=== PATIENT | female | born 1980 | race Caucasian/White ===

== ENCOUNTER 2017-03-26 09:27 | Emergency (ER) | payer SELFPAY ==
[~2017-03-26] VITALS: Ht 160 cm; Wt 62.6 kg
[2017-03-26] MEDS ORDERED: IV NORMAL SALINE 1000ML BAG 1,000 ML IV ONE (10:15)
[2017-03-26] MEDS ORDERED: ONDANSETRON PF 4 MG/2 ML VIAL. IV ONE (10:15)
[2017-03-26] MEDS ORDERED: MORPHINE SULFATE 10 MG/ML VIAL. IV ONE (10:15)
[2017-03-26 10:40] LABS: BILIRUBIN,URINE NEGATIVE (NEG); GLUCOSE,URINE NEGATIVE (NEG); NITRITE,URINE NEGATIVE (NEG); PROTEIN,URINE NEGATIVE (NEG-TRACE); UROBILINOGEN,URINE 0.2 mg/dL (0.2 mg/dL)
[2017-03-26 10:41] LABS: BASO # 0.1 x10^3/uL (0.0-0.2); BASO % 1 % (0-3); EOS % 3 % (0-3); HEMATOCRIT 42.2 % (36.0-47.0); HEMOGLOBIN 14.2 g/dL (12.0-15.5); LYMPH % 36 % (24-48); MEAN CORPUSCULAR HEMOGLOBIN 33 pg (25-35); MEAN CORPUSCULAR HGB CONC 34 g/dL (31-37); MEAN CORPUSCULAR VOLUME 97 fL (79-100); MONO % 6 % (0-9); NEUT % 53 % (31-73); PLATELET COUNT 156 x10^3/uL (140-400); RED BLOOD COUNT 4.34 x10^6/uL (3.50-5.40); RED CELL DISTRIBUTION WIDTH 12.9 % (11.5-14.5); WHITE BLOOD COUNT 5.5 x10^3/uL (4.0-11.0)
[2017-03-26] MEDS ORDERED: IOHEXOL 300 MG/ML 75 ML VIAL IV ONE (10:45)
[2017-03-26 10:47] LABS: ALBUMIN 3.4 g/dL (3.4-5.0); ALBUMIN/GLOBULIN RATIO 0.9 (1.0-1.7); CREATININE 0.8 mg/dL (0.6-1.0); GFR 80.7; POTASSIUM 4.6 mmol/L (3.5-5.1); TOTAL BILIRUBIN 0.2 mg/dL (0.2-1.0)
[2017-03-26 10:52] LABS: BARBITURATES NEG (NEG); BENZODIAZEPINES POS (NEG); CANNABINOIDS NEG (NEG); COCAINE NEG (NEG); METHADONE NEG (NEG); OPIATES NEG (NEG); PHENCYCLIDINE NEG (NEG)
[2017-03-26] MEDS ORDERED: CONTRAST GIVEN MC PRN (11:00)
[2017-03-26 11:15] LABS: BACTERIA,URINE FEW /HPF (0-FEW); RBC,URINE 0 /HPF (0-2); SQUAMOUS EPITHELIAL CELL,UR MOD /LPF
--- NOTE | 2017-03-26 11:47 | RAD ---
Exam performed: CT abdomen pelvis with contrast. History: Right lower quadrant abdominal pain. Date of service: 03/26/17. Comparison: None available Technique: Contiguous helical acquisitions are obtained through the abdomen and pelvis during intravenous administration of 75 cc of Omnipaque 300. Sagittal and coronal reformatted images are obtained and reviewed. Findings: The lung bases are essentially clear. The visualized heart is normal. The liver, gallbladder, spleen and pancreas are normal. Both adrenal glands and bilateral kidneys are normal in size with symmetric excretion of contrast via both kidneys. There is no hydronephrosis or nephrolithiasis. Aorta is normal in caliber without aneurysm. No retroperitoneal or mesenteric lymphadenopathy seen. Small and large bowel loops are nondilated and unremarkable. The visualized portion of the appendix is normal. No inflammatory changes are seen in the right lower quadrant. Urinary bladder is normal. There is a probable right ovarian cyst. The uterus is surgically absent. No free or focal fluid collections or pelvic lymphadenopathy seen. Interrogation of bone windows demonstrates no bony abnormality. Impression: 1. No acute intra-abdominal or pelvic process seen. 2. Appendix is normal. 3. Probable right ovarian cyst versus fluid-filled small bowel loop indicated.. Evaluation with pelvic ultrasound may be performed if indicated. PQRS Compliance Statement: One or more of the following individualized dose reduction techniques were utilized for this examination: 1. Automated exposure control 2. Adjustment of the mA and/or kV according to patient size 3. Use of iterative reconstruction technique
[2017-03-26 12:30] VITALS: BP 102/64
[2017-03-26] MEDS ORDERED: HYDROmorphone 2 MG/ML VIAL IV ONE ×2 (12:30→12:45)
[2017-03-26] MEDS ORDERED: DIPH1TAB PO (12:39)
[2017-03-26] MEDS ORDERED: ONDA4TAB10 SL (12:39)
[2017-03-26] MEDS ORDERED: OXYC5CAP3 PO (12:39)
--- NOTE | 2017-03-26 12:39 | PHYS DOC ---
Past Medical History Past Medical History: Seizure, Other Additional Past Medical Histor: epilepsy, psoriasis Past Surgical History: , Hysterectomy, Tonsillectomy, Other Additional Past Surgical Histo: breast augmentation,wisdom teeth, tendon release,lymph node removal Additional Information: 1/2 ppd Alcohol Use: None Drug Use: None Adult General Chief Complaint Chief Complaint: ABDOMINAL PAIN HPI HPI Patient is a 36 year old female with history of seizures who presents today with a right lower quadrant abdominal pain with nausea and diarrhea that began 3 days ago. Patient denies any fever. She denies any melena. She states she's had partial hysterectomy Review of Systems Review of Systems Constitutional: Denies fever or chills [] Eyes: Denies change in visual acuity, redness, or eye pain [] HENT: Denies nasal congestion or sore throat [] Respiratory: Denies cough or shortness of breath [] Cardiovascular: No additional information not addressed in HPI [] GI: RLQ abdominal pain, nausea, and diarrhea : Denies dysuria or hematuria [] Musculoskeletal: Denies back pain or joint pain [] Integument: Denies rash or skin lesions [] Neurologic: Denies headache, focal weakness or sensory changes [] Endocrine: Denies polyuria or polydipsia [] Current Medications Current Medications Current Medications Medications (Trade) Dose Ordered Sig/Tarun Start Time Stop Time Status Last Admin Dose Admin Hydromorphone HCl (Dilaudid) 1 mg 1X ONCE 03/26/17 12:45 03/26/17 12:46 DC 03/26/17 12:51 1 MG Info (Do NOT chart on this entry -- for MONITORING) 1 each PRN DAILY PRN 03/26/17 11:00 03/26/17 13:02 DC Iohexol (Omnipaque 300 Mg/ml) 75 ml 1X ONCE 03/26/17 10:45 03/26/17 10:47 DC 03/26/17 11:00 75 ML Morphine Sulfate 5 mg 1X ONCE 03/26/17 10:15 03/26/17 10:37 DC 03/26/17 10:44 5 MG Ondansetron HCl (Zofran) 4 mg 1X ONCE 03/26/17 10:15 03/26/17 10:37 DC 03/26/17 10:44 4 MG Sodium Chloride 1,000 ml @ 1,000 mls/hr 1X ONCE 03/26/17 10:15 03/26/17 11:14 DC 03/26/17 10:44 1,000 MLS/HR Allergies Allergies Allergies Coded Allergies Type Severity Reaction Last Updated Verified Penicillins Allergy Intermediate 03/26/17 Yes adalimumab Allergy Intermediate 03/26/17 Yes acetaminophen Adverse Reaction Mild vomiting 03/26/17 Yes Physical Exam Physical Exam Constitutional: Well developed, well nourished, no acute distress, non-toxic appearance. [] HENT: Normocephalic, atraumatic, bilateral external ears normal, oropharynx moist, no oral exudates, nose normal. [] Eyes: PERRLA, EOMI, conjunctiva normal, no discharge. [] Neck: Normal range of motion, no tenderness, supple, no stridor. [] Cardiovascular:Heart rate regular rhythm, no murmur [] Lungs & Thorax: Bilateral breath sounds clear to auscultation [] Abdomen: Bowel sounds normal, mild tenderness on palpation of the right lower quadrant, no right upper quadrant pain or tenderness, negative Taylor's sign, negative obturator sign, negative psoas sign, soft abdomen,no masses, no pulsatile masses. [] Skin: Warm, dry, no erythema, no rash. [] Back: No tenderness, no CVA tenderness. [] Extremities: No tenderness, no cyanosis, no clubbing, ROM intact, no edema. [] Neurologic: Alert and oriented X 3, normal motor function, normal sensory function, no focal deficits noted. [] Psychologic: Affect normal, judgement normal, mood normal. [] Current Patient Data Vital Signs Vital Signs Date Time Temp Pulse Resp B/P (MAP) Pulse Ox O2 Delivery O2 Flow Rate FiO2 03/26/17 12:51 19 98 Room Air 03/26/17 12:30 68 102/64 (77) 03/26/17 09:55 98.4 98.4 Lab Values Laboratory Tests Test 03/26/17 09:07 03/26/17 10:00 03/26/17 10:20 POC Urine HCG, Qualitative Hcg negative (Negative) Urine Collection Type Unknown Urine Color Yellow Urine Clarity Clear Urine pH 6.0 Urine Specific Mora 1.020 Urine Protein Negative mg/dL (NEG-TRACE) Urine Glucose (UA) Negative mg/dL (NEG) Urine Ketones (Stick) Negative mg/dL (NEG) Urine Blood Negative (NEG) Urine Nitrite Negative (NEG) Urine Bilirubin Negative (NEG) Urine Urobilinogen Dipstick 0.2 mg/dL (0.2 mg/dL) Urine Leukocyte Esterase Negative (NEG) Urine RBC 0 /HPF (0-2) Urine WBC 1-4 /HPF (0-4) Urine Squamous Epithelial Cells Mod /LPF Urine Bacteria Few /HPF (0-FEW) Urine Mucus Mod /LPF Urine Opiates Screen Neg (NEG) Urine Methadone Screen Neg (NEG) Urine Barbiturates Neg (NEG) Urine Phencyclidine Screen Neg (NEG) Urine Amphetamine/Methamphetamine Neg (NEG) Urine Benzodiazepines Screen Pos (NEG) Urine Cocaine Screen Neg (NEG) Urine Cannabinoids Screen Neg (NEG) Urine Ethyl Alcohol Neg (NEG) White Blood Count 5.5 x10^3/uL (4.0-11.0) Red Blood Count 4.34 x10^6/uL (3.50-5.40) Hemoglobin 14.2 g/dL (12.0-15.5) Hematocrit 42.2 % (36.0-47.0) Mean Corpuscular Volume 97 fL (79-100) Mean Corpuscular Hemoglobin 33 pg (25-35) Mean Corpuscular Hemoglobin Concent 34 g/dL (31-37) Red Cell Distribution Width 12.9 % (11.5-14.5) Platelet Count 156 x10^3/uL (140-400) Neutrophils (%) (Auto) 53 % (31-73) Lymphocytes (%) (Auto) 36 % (24-48) Monocytes (%) (Auto) 6 % (0-9) Eosinophils (%) (Auto) 3 % (0-3) Basophils (%) (Auto) 1 % (0-3) Neutrophils # (Auto) 2.9 x10^3uL (1.8-7.7) Lymphocytes # (Auto) 2.0 x10^3/uL (1.0-4.8) Monocytes # (Auto) 0.3 x10^3/uL (0.0-1.1) Eosinophils # (Auto) 0.2 x10^3/uL (0.0-0.7) Basophils # (Auto) 0.1 x10^3/uL (0.0-0.2) Sodium Level 139 mmol/L (136-145) Potassium Level 4.6 mmol/L (3.5-5.1) Chloride Level 104 mmol/L (98-107) Carbon Dioxide Level 26 mmol/L (21-32) Anion Gap 9 (6-14) Blood Urea Nitrogen 19 mg/dL (7-20) Creatinine 0.8 mg/dL (0.6-1.0) Estimated GFR (Cockcroft-Gault) 80.7 BUN/Creatinine Ratio 24 (6-20) H Glucose Level 73 mg/dL (70-99) Calcium Level 9.0 mg/dL (8.5-10.1) Total Bilirubin 0.2 mg/dL (0.2-1.0) Aspartate Amino Transferase (AST) 30 U/L (15-37) Alanine Aminotransferase (ALT) 39 U/L (14-59) Alkaline Phosphatase 26 U/L (46-116) L Total Protein 7.0 g/dL (6.4-8.2) Albumin 3.4 g/dL (3.4-5.0) Albumin/Globulin Ratio 0.9 (1.0-1.7) L Lipase 205 U/L (73-393) Ethyl Alcohol Level < 10 mg/dL (0-10) Laboratory Tests 03/26/17 10:20 Laboratory Tests 03/26/17 10:20 EKG EKG [] Radiology/Procedures Radiology/Procedures [] Course & Med Decision Making Course & Med Decision Making Pertinent Labs and Imaging studies reviewed. (See chart for details) This is a 36 year old female patient who presents today with right lower quadrant abdominal pain with nausea and diarrhea that began 3 days ago. Labs are negative. CT of the abdomen and pelvic is negative for any acute findings. Radiologist mentions she has a probable right ovarian cyst cyst vs fluid filled small bowel which can be followed up as outpatient with ultrasound. This patient has needed pain medicine quit abit in the Ed. We finally gave her 2 doses of Dilaudid to get her pain under control. Results were given to her and she kept on asking what is the function of the appendix and if we can remove it. Informed her we do not remove appendix for no reason. She was instructed to follow-up with PCP for outpatient sonogram. She stated she'll follow-up with Dr. Grayson's group. Discharged with Zofran and Lomotil and oxycodone for pain. Her nausea, vomiting and diarrhea was probably viral. 16:33 received a phone call from the charge nurse stating patient called [facility] where she receives her primary care and informed them we discharged her from the hospital with an acute appendicitis because she has no insurance, she stated we refused to remove her appendix because she does not have medical insurance. 16:34 I contacted Meka at [facility], her phone number is , informed her patient had no appendicitis. Informed her patient's labs are normal and patient probably had a cyst which she can follow-up as an outpatient. She stated that we'll contact patient and have her follow-up at the office. Dragon Disclaimer Dragon Disclaimer This electronic medical record was generated, in whole or in part, using a voice recognition dictation system. Departure Departure Impression: Primary Impression: Nausea vomiting and diarrhea Additional Impression: Right lower quadrant abdominal pain Disposition: 01 HOME, SELF-CARE Condition: STABLE Referrals: AFUA GRAYSON Jr, MD (PCP) Follow-up with your own doctor in the next 1-3 days Patient Instructions: Abdominal Pain, Diarrhea, Nausea and Vomiting Additional Instructions: You were seen for abdominal pain with nausea and diarrhea. Your workup today was negative for any acute findings. We highly recommend you follow-up with your doctor in the next 1-3 days. Come back to the ED symptoms worsen. Scripts Ondansetron (ZOFRAN ODT) 4 Mg Tab.rapdis 1 TAB SL Q8HRS, #15 TAB Prov: ALICIA CALDERON APRN 03/26/17 Diphenoxylate Hcl/Atropine (LOMOTIL TABLET) 1 Each Tablet 1 TAB PO TID, #30 TAB Prov: ALICIA CALDERON APRN 03/26/17 Oxycodone Hcl (OXYCODONE HCL) 5 Mg Capsule 1 CAP PO TID, #14 CAP Prov: ALICIA CALDERON APRN 03/26/17 Problem Qualifiers ALICIA CALDERON APRN March 26, 2017 12:39
== END 2017-03-26 13:00 | disposition home or self-care (01) ==
LOC: ER 09:27
DX: R10.31 Right lower quadrant pain (principal); R11.2 Nausea with vomiting, unspecified; R19.7 Diarrhea, unspecified; G40.909 Epilepsy, unspecified, not intractable, without status epilepticus; F17.200 Nicotine dependence, unspecified, uncomplicated; Z90.710 Acquired absence of both cervix and uterus; Z98.890 Other specified postprocedural states; Z88.8 Allergy status to other drugs, medicaments and biological substances; Z88.0 Allergy status to penicillin
CPT/HCPCS: 36415; 74177; 80053; 80305; 80320; 81001; 81025; 83690; 85027; 96361; 96374; 96375; 96376; 99285; J1170; J2270; J2405; J7030; Q9967; G0480; G0481